=== PATIENT | female | born 1945 | race Caucasian/White ===

== ENCOUNTER 2020-11-16 04:43 | Emergency (ER) | payer MEDICARE, OTHER ==
[~2020-11-16 04:43] MED LIST: AMLODIPINE BESYL5 MG PO; ASPIRIN EC81 MG PO; KAPSPARGO SPRIN25 MG PO; LIPITOR80 MG PO; METOPROLOL SUCC25 MG PO
[2020-11-16 05:24] LABS: RED BLOOD COUNT 4.15 M/UL (4.00-5.10); WHITE BLOOD COUNT 7.7 K/UL (4.5-11.0)
[2020-11-16 05:39] LABS: BUN/CREATININE RATIO 28 (0-10)
== END 2020-11-16 14:00 | disposition home or self-care (01) ==
LOC: ER1 04:43 → CDU 06:37
PROVIDERS: Family Medicine
DX: R07.9 Chest pain, unspecified (principal); I25.10 Atherosclerotic heart disease of native coronary artery without angina pectoris; E78.5 Hyperlipidemia, unspecified; I10 Essential (primary) hypertension; I48.91 Unspecified atrial fibrillation; Z20.822 Contact with and (suspected) exposure to COVID-19; Z90.49 Acquired absence of other specified parts of digestive tract
CPT/HCPCS: 71045; 80053; 82550; 82553; 83874; 83880; 84132; 84484; 85025; 85379; 93005; 96372; 96374; 99285; U0002

== ENCOUNTER 2021-02-19 06:18 | Emergency (ER) | payer MEDICARE ==
[2021-02-19 07:00] LABS: HEMOGLOBIN 13.8 gm/dl (12.3-15.3); RED BLOOD COUNT 4.37 M/UL (4.00-5.10); WHITE BLOOD COUNT 7.9 K/UL (4.5-11.0)
[2021-02-19 07:40] LABS: BUN/CREATININE RATIO 23 (0-10)
== END 2021-02-19 09:48 | disposition home or self-care (01) ==
LOC: ER1 06:18
PROVIDERS: Family Medicine
DX: R00.2 Palpitations (principal); I10 Essential (primary) hypertension; E11.9 Type 2 diabetes mellitus without complications; E78.5 Hyperlipidemia, unspecified; I25.10 Atherosclerotic heart disease of native coronary artery without angina pectoris; Z95.1 Presence of aortocoronary bypass graft; Z85.43 Personal history of malignant neoplasm of ovary
CPT/HCPCS: 71045; 80053; 82550; 82553; 83874; 83880; 84439; 84443; 84484; 85025; 85610; 93005; 93242; 99285